=== PATIENT | female | born 1955 | race African-American/Black ===

== ENCOUNTER 2016-09-30 18:52 | Emergency (ER) | payer MEDICAID | END 2016-09-30 20:00 | disposition home or self-care (01) | LOC: D.ER 18:52 | DX: M25.50 Pain in unspecified joint (principal); I10 Essential (primary) hypertension ==

== ENCOUNTER 2017-02-17 13:25 | Emergency (ER) | payer MEDICAID | END 2017-02-17 15:56 | disposition home or self-care (01) | LOC: D.ER 13:25 | DX: M75.102 Unspecified rotator cuff tear or rupture of left shoulder, not specified as traumatic (principal); Z86.59 Personal history of other mental and behavioral disorders; I10 Essential (primary) hypertension ==

== ENCOUNTER 2017-05-06 10:40 | Emergency (ER) | payer MEDICAID ==
[2017-05-06 13:42] LABS: BASOPHILS 0.3 % (0-2); EOSINOPHILS 1.8 % (0-7); HEMATOCRIT 37.9 % (36.0-48.0); HEMOGLOBIN 12.3 g/dL (12-16); IMMATURE GRANULOCYTES 0.1 % (0-5); LYMPHOCYTES 30.2 % (15-50); MCH 29.5 pg (26.0-34.0); MCHC 32.5 g/dL (31.0-37.0); MCV 90.9 fL (80.0-100.0); MEAN PLATELET VOLUME 10.4 fL (7.4-10.4); MONOCYTES 7.2 % (2-11); NEUTROPHILS 60.4 % (40-80); PLATELET COUNT 256 10x3/uL (130-400); RBC 4.17 10x6/uL (4.00-5.40); RDW 14.8 % (11.5-14.5); WBC 6.7 10x3/uL (4.8-10.8)
[2017-05-06 13:57] LABS: ALBUMIN 3.3 g/dL (3.4-5.0); ALKALINE PHOSPHATASE 67 U/L (46-116); ALT (SGPT) 24 U/L (10-68); BILIRUBIN - TOTAL 0.13 mg/dL (0.2-1.3); CALC OSMOLALITY 284 mosm/kg (275-300); CALCIUM 8.4 mg/dL (8.5-10.1); CARBON DIOXIDE 33.9 mmol/L (21.0-32.0); CHLORIDE - SERUM 107 mmol/L (98-107); CREATININE - SERUM 1.1 mg/dL (0.6-1.3); GLUCOSE 110 mg/dL (74-106); POTASSIUM - SERUM 4.1 mmol/L (3.5-5.1); PROTEIN - SERUM 7.2 g/dL (6.4-8.2); SODIUM 142 mmol/L (136-145); UREA NITROGEN 14 mg/dL (7-18); eGFR NON AFRICAN AMERICAN 53 mL/min (90-120)
[2017-05-06 14:19] LABS: APPEARANCE CLEAR (CLEAR); COLOR YELLOW (YELLOW); SPECIFIC GRAVITY 1.015 (1.005-1.020)
[2017-05-06 14:20] LABS: CREATINE KINASE 251 UL (21-215)
[2017-05-06 14:20] LABS: BILIRUBIN NEGATIVE (NEGATIVE); GLUCOSE NEGATIVE (NEGATIVE); KETONE NEGATIVE (NEGATIVE); NITRITE NEGATIVE (NEGATIVE); PROTEIN NEGATIVE (NEGATIVE); UROBILINOGEN NORMAL (NORMAL)
[2017-05-06 14:21] LABS: WHITE CELLS - URINE NSEEN /hpf (0-5)
[2017-05-06 14:30] LABS: TROPONIN-I < 0.017 ng/mL (0.000-0.060)
[2017-05-06 14:31] LABS: CKMB 1.2 U/L (0.0-3.6)
== END 2017-05-06 16:01 | disposition home or self-care (01) ==
LOC: D.ER 10:40
PROVIDERS: Nurse Practitioner Family
DX: J44.1 Chronic obstructive pulmonary disease with (acute) exacerbation (principal); M25.512 Pain in left shoulder; F41.9 Anxiety disorder, unspecified; I10 Essential (primary) hypertension

== ENCOUNTER 2017-06-20 14:27 | Emergency (ER) | payer MEDICAID | END 2017-06-20 18:20 | disposition home or self-care (01) | LOC: D.ER 14:27 | DX: M25.512 Pain in left shoulder (principal); M25.561 Pain in right knee; M54.5 Low back pain; I10 Essential (primary) hypertension; J44.9 Chronic obstructive pulmonary disease, unspecified ==

== ENCOUNTER 2017-07-03 21:38 | Emergency (ER) | payer MEDICAID | END 2017-07-04 01:25 | disposition home or self-care (01) | LOC: D.ER 21:38 | DX: M25.562 Pain in left knee (principal); I10 Essential (primary) hypertension ==

== ENCOUNTER → 2017-08-12 15:24 | Outpatient (CLI) | payer MEDICAID | END | disposition home or self-care (01) | LOC: D.MRI 15:24 | DX: S83.222A Peripheral tear of medial meniscus, current injury, left knee, initial encounter (principal); X58.XXXA Exposure to other specified factors, initial encounter ==

== ENCOUNTER → 2017-12-30 18:57 | Outpatient (CLI) | payer MEDICAID | END | disposition home or self-care (01) | LOC: D.MAMMO 15:45 | DX: Z12.31 Encounter for screening mammogram for malignant neoplasm of breast (principal) ==

== ENCOUNTER 2018-04-05 15:03 | Emergency (ER) | payer MEDICAID ==
[~2018-04-05] VITALS: Ht 165.1 cm; Wt 113.6 kg
[2018-04-05 15:20] VITALS: Ht 165.1 cm; Wt 113.6 kg
[2018-04-05] MEDS ORDERED: WATER PILL (15:22)
[2018-04-05] MEDS ORDERED: BAYER CHEWABLE81 MG (15:22)
[2018-04-05] MEDS ORDERED: BP MEDICATION (15:22)
[2018-04-05] MEDS ORDERED: LEXAPRO5 MG (15:23)
[2018-04-05] MEDS ORDERED: TALWIN NX1 TAB PO (20:44)
[2018-04-05] MEDS ORDERED: VOLTAREN75 MG PO (20:44)
[2018-04-05 20:58] VITALS: BP 170/99
== END 2018-04-05 21:24 | disposition home or self-care (01) ==
LOC: D.ER 15:03
DX: M25.512 Pain in left shoulder (principal); I10 Essential (primary) hypertension

== ENCOUNTER 2018-07-28 15:00 | Emergency (ER) | payer MEDICAID ==
[~2018-07-28] VITALS: Ht 165.1 cm; Wt 113.6 kg
[~2018-07-28 15:00] MED LIST: BAYER CHEWABLE81 MG; BP MEDICATION; LEXAPRO5 MG; TALWIN NX1 TAB PO; VOLTAREN75 MG PO; WATER PILL
[2018-07-28 15:17] VITALS: Ht 165.1 cm; Wt 113.6 kg
[2018-07-28] MEDS ORDERED: ZPAK PO (15:46)
[2018-07-28 16:30] VITALS: BP 147/101
== END 2018-07-28 16:30 | disposition home or self-care (01) ==
LOC: D.ER 15:00
DX: J40 Bronchitis, not specified as acute or chronic (principal)

== ENCOUNTER 2018-11-25 14:10 | Emergency (ER) | payer MEDICAID ==
[~2018-11-25] VITALS: Ht 165.1 cm; Wt 113.6 kg
[~2018-11-25 14:10] MED LIST changes: +ZPAK PO
[2018-11-25 14:13] VITALS: Ht 165.1 cm; Wt 113.6 kg
[2018-11-25] MEDS ORDERED: IBUPROFEN800 MG PO (15:05)
[2018-11-25] MEDS ORDERED: CYCLOBENZAPRINE10 MG PO (15:05)
[2018-11-25 16:08] VITALS: BP 142/78
== END 2018-11-25 16:09 | disposition home or self-care (01) ==
LOC: D.ER 14:10
DX: S46.002A Unspecified injury of muscle(s) and tendon(s) of the rotator cuff of left shoulder, initial encounter (principal); W10.9XXA Fall (on) (from) unspecified stairs and steps, initial encounter; Y93.89 Activity, other specified; Y92.019 Unspecified place in single-family (private) house as the place of occurrence of the external cause

== ENCOUNTER → 2019-01-24 13:09 | Outpatient (CLI) | payer MEDICAID ==
[2018-11-25 14:13] VITALS: BMI 41.6
[~2019-01-24 13:09] MED LIST changes: +CYCLOBENZAPRINE10 MG PO; +IBUPROFEN800 MG PO
[2019-01-24 13:55] LABS: BASOPHILS 0.1 % (0-2); EOSINOPHILS 1.2 % (0-7); HEMATOCRIT 39.3 % (36.0-48.0); HEMOGLOBIN 12.5 g/dL (12-16); IMMATURE GRANULOCYTES 0.3 % (0-5); LYMPHOCYTES 19.4 % (15-50); MCH 28.9 pg (26.0-34.0); MCHC 31.8 g/dL (31.0-37.0); MCV 90.8 fL (80.0-100.0); MEAN PLATELET VOLUME 9.9 fL (7.4-10.4); MONOCYTES 3.6 % (2-11); NEUTROPHILS 75.4 % (40-80); PLATELET COUNT 288 10x3/uL (130-400); RBC 4.33 10x6/uL (4.00-5.40); RDW 14.1 % (11.5-14.5); WBC 10.4 10x3/uL (4.8-10.8)
[2019-01-24 14:08] LABS: ALBUMIN 3.5 g/dL (3.4-5.0); ANION GAP 9.6 mmol/L (8-16); BILIRUBIN - TOTAL 0.27 mg/dL (0.2-1.3); CALCIUM 8.8 mg/dL (8.5-10.1); CARBON DIOXIDE 29.8 mmol/L (21.0-32.0); CREATININE - SERUM 0.9 mg/dL (0.6-1.3); POTASSIUM - SERUM 3.4 mmol/L (3.5-5.1); PROTEIN - SERUM 7.2 g/dL (6.4-8.2)
== END | disposition home or self-care (01) ==
LOC: D.RAD 13:09
DX: M25.512 Pain in left shoulder (principal)